=== PATIENT | male | born 1995 | race Caucasian/White ===

== ENCOUNTER 2017-08-01 14:16 | Emergency (ER) | payer SELFPAY ==
[2017-08-01] MEDS ORDERED: Cephalexin 500 MG CAP ONE (14:57)
[2017-08-01] MEDS ORDERED: Sulfameth/Trimethoprim DS 800-160mg TAB ONE (14:57)
== END 2017-08-01 15:07 | disposition home or self-care (01) ==
LOC: MADERS 14:16
DX: L02.31 Cutaneous abscess of buttock (principal); L03.317 Cellulitis of buttock
CPT/HCPCS: 10060

== ENCOUNTER 2017-09-21 11:36 | Emergency (ER) | payer SELFPAY ==
[2017-09-21] MEDS ORDERED: Ibuprofen 800 MG TAB ONE (12:11)
[2017-09-21] MEDS ORDERED: Acetaminophen 500 MG TAB ONE (12:22)
--- NOTE | 2017-09-21 13:04 | RAD ---
RIGHT HAND THREE VIEWS: HISTORY: Injury. Punched door last night. FINDINGS: There is prior plate and screw fixation of the fifth metacarpal fracture. There is also an old fourt h metacarpal diaphyseal fracture. No acute displaced fracture is appreciated. There is capsular elisa cification along the third metacarpophalangeal joint. IMPRESSION: Chronic changes. No acute fracture or malalignment is appreciated. POS: [facility]
== END 2017-09-21 12:33 | disposition home or self-care (01) ==
LOC: MADERS 11:36
DX: S66.911A Strain of unspecified muscle, fascia and tendon at wrist and hand level, right hand, initial encounter (principal); F17.210 Nicotine dependence, cigarettes, uncomplicated; W22.8XXA Striking against or struck by other objects, initial encounter
CPT/HCPCS: 29125

== ENCOUNTER 2017-09-25 20:41 | Emergency (ER) | payer SELFPAY | END 2017-09-25 21:25 | disposition home or self-care (01) | LOC: MADERS 20:41 | DX: Z48.00 Encounter for change or removal of nonsurgical wound dressing (principal); F17.210 Nicotine dependence, cigarettes, uncomplicated | CPT/HCPCS: 99282 ==

== ENCOUNTER 2018-07-09 22:37 | Emergency (ER) | payer MEDICAID ==
[2018-07-09] MEDS ORDERED: Furosemide 40 MG TAB ONE (23:07)
[2018-07-09] MEDS ORDERED: Fluconazole 100 MG TAB ONE (23:07)
== END 2018-07-09 23:13 | disposition home or self-care (01) ==
LOC: MADERS 22:37
DX: B35.6 Tinea cruris (principal); B35.3 Tinea pedis; F17.210 Nicotine dependence, cigarettes, uncomplicated; F31.9 Bipolar disorder, unspecified
CPT/HCPCS: 99282

== ENCOUNTER 2018-08-27 11:25 | Emergency (ER) | payer MEDICAID, SELFPAY ==
[2018-08-27] MEDS ORDERED: Sulfameth/Trimethoprim DS 800-160mg TAB ONE (12:02)
== END 2018-08-27 12:01 | disposition home or self-care (01) ==
LOC: MADERS 11:25
DX: L02.415 Cutaneous abscess of right lower limb (principal); Z71.6 Tobacco abuse counseling; F17.210 Nicotine dependence, cigarettes, uncomplicated
CPT/HCPCS: 10060; 99406

== ENCOUNTER 2018-09-03 09:40 | Emergency (ER) | payer SELFPAY ==
[2018-09-03] MEDS ORDERED: Acetaminophen/Codeine 30-300mg Tablet ONE (10:21)
== END 2018-09-03 10:25 | disposition home or self-care (01) ==
LOC: MADERS 09:40
DX: K04.7 Periapical abscess without sinus (principal); K02.9 Dental caries, unspecified; K03.81 Cracked tooth; F31.9 Bipolar disorder, unspecified; F17.210 Nicotine dependence, cigarettes, uncomplicated
CPT/HCPCS: 99282

== ENCOUNTER 2019-05-02 23:37 | Emergency (ER) | payer SELFPAY ==
[2019-05-03] MEDS ORDERED: Clindamycin 150 MG CAP ONE (00:17)
[2019-05-03] MEDS ORDERED: Ibuprofen 800 MG TAB ONE (00:18)
== END 2019-05-03 00:22 | disposition home or self-care (01) ==
LOC: MADERS 23:37
DX: K04.7 Periapical abscess without sinus (principal); K03.81 Cracked tooth; Z71.6 Tobacco abuse counseling; F31.9 Bipolar disorder, unspecified; F17.210 Nicotine dependence, cigarettes, uncomplicated
CPT/HCPCS: 99406